=== PATIENT | female | born 1950 | race Caucasian/White ===

== ENCOUNTER 2017-11-21 10:00 | Emergency (ER) | payer BC ==
[~2017-11-21 10:00] MED LIST: SYNT25TA PO
[2017-11-21 10:08] VITALS: BP 146/62; PULSE 87; RESP 16; TEMP 98.4; O2SAT 95
[2017-11-21] MEDS ORDERED: LEVO125T4 PO (10:15)
[2017-11-21] MEDS ORDERED: LEVO112T2 PO (10:15)
[2017-11-21] MEDS ORDERED: AMOX875T PO (10:16)
[2017-11-21] MEDS ORDERED: MAGICADU2 SWISH-SPIT (10:18)
--- NOTE | 2017-11-21 10:21 | PD ---
HPI Chief Complaint: ENT Complaint Time Seen by Provider: 10:11 Travel History International Travel<30 days: No Contact w/Intl Traveler<30days: No Traveled to known affect area: No History of Present Illness HPI 67-year-old female presents with left ear pain and sore throat. Symptoms started 1 week ago. Pain is a pulsating pain in left ear, constant, and a sore type pain in her throat which is worse when swallowing. Symptoms have been worsening which prompted evaluation today. Denies cough, congestion, fevers or chills. Denies recent travel, recent swimming. She tried using over-the- counter eardrops which did not seem to help with her symptoms. No other complaints at this time. PFSH Past Medical History Arthritis: No Asthma: No Autoimmune Disease: No Heart Rhythm Problems: No Cancer: Yes (THYROID) Cardiovascular Problems: No High Cholesterol: No Congestive Heart Failure: No COPD: No Cerebrovascular Accident: No Diminished Hearing: No Gastrointestinal Disorders: No GERD: No Glaucoma: No Headaches: Yes Hepatitis: No Hiatal Hernia: No Hypertension: No Musculoskeletal: No Neurologic: No Psychiatric: No Respiratory: No Myocardial Infarction: No Seizures: No Sleep Apnea: No Thyroid Disease: Yes Ulcer: No Past Surgical History Abdominal Surgery: Yes (hysterectomy) Endocrine Surgery: Yes (THYROID REMOVED) Genitourinary Surgery: No Hysterectomy: Yes Other Surgery: No Social History Alcohol Use: No Tobacco Use: No Substance Use: No Allergies-Medications (Allergen,Severity, Reaction): Coded Allergies: No Known Allergies (Verified Adverse Reaction, Unknown, 11/21/17) Reported Meds & Prescriptions Reported Meds & Active Scripts Active Magic Mouthwash Adult Liq (Multi-Ingredient Mouthwash/Gargle) 120 Ml Susp 10 Ml SWISH-SPIT ACHS Each 5mL contains: Nystatin 200,000units, Diphenhydramine 4.25mg, Viscous Lidocaine 10mg, Argueta syrup 0.8 mL Amoxicillin 875 Mg Tab 875 Mg PO BID 10 Days Reported Levothyroxine (Levothyroxine Sodium) 125 Mcg Tab 125 Mcg PO TH,F,S,S Levothyroxine (Levothyroxine Sodium) 112 Mcg Tab 112 Mcg PO M,T,W Review of Systems General / Constitutional: No: Fever, Chills HENT: Positive: Headaches, Sore Throat, Earache, No: Congestion, Ear Discharge Respiratory: No: Cough Gastrointestinal: No: Nausea, Vomiting, Abdominal Pain Physical Exam Narrative GENERAL: Well-developed well-nourished female in no acute distress SKIN: Warm and dry. HEAD: Atraumatic. Normocephalic. EYES: Pupils equal and round. No scleral icterus. No injection or drainage. ENT: No nasal bleeding or discharge. Mucous membranes pink and moist. The oropharynx is mildly erythematous. Left tympanic membrane is bulging and erythematous without perforation. NECK: Trachea midline. No JVD. There is mild tender anterior cervical lymphadenopathy present. CARDIOVASCULAR: Regular rate and rhythm. No murmur appreciated. RESPIRATORY: No accessory muscle use. Clear to auscultation. Breath sounds equal bilaterally. GASTROINTESTINAL: Abdomen soft, non-tender, nondistended. Hepatic and splenic margins not palpable. Data Data Last Documented VS Vital Signs Date Time Temp Pulse Resp B/P (MAP) Pulse Ox O2 Delivery O2 Flow Rate FiO2 11/21/17 10:08 98.4 87 16 146/62 (90) 95 Orders Orders Ed Discharge Order (11/21/17 10:17) [facility] Medical Decision Making Medical Screen Exam Complete: Yes Emergency Medical Condition: Yes Medical Record Reviewed: Yes Differential Diagnosis Otitis media, otitis externa, perforated tympanic membrane, mastoiditis, referred dental pain, pharyngitis, tonsillitis Narrative Course The patient has left otitis media and pharyngitis. She is being discharged with amoxicillin and Magic mouthwash. Diagnosis Primary Impression: Left otitis media Additional Impression: Pharyngitis Additional Instructions: Medication as prescribed. Stay well hydrated well-nourished. Use over-the- counter Tylenol or Motrin for pain. Dosing instructions on the bottle. Follow- up with primary care physician as needed and return for any acutely new or worsening symptoms. Med/Other Pt SpecificInfo: Prescription(s) given Scripts Ntvshpob-Mzvqilqoydtewtg-Jrmkddglc Liq (Magic Mouthwash Adult Liq) 120 Ml Susp 10 ML SWISH-SPIT ACHS for Mouth sores, #120 ML 1 Refill Each 5mL contains: Nystatin 200,000units, Diphenhydramine 4.25mg, Viscous Lidocaine 10mg, Argueta syrup 0.8 mL Prov: Chang Davis MD 11/21/17 Amoxicillin (Amoxicillin) 875 Mg Tab 875 MG PO BID for Infection for 10 Days, #20 TAB 0 Refills Prov: Chang Davis MD 11/21/17 Disposition: 01 DISCHARGE HOME Condition: Stable Jose Eduardo Ojeda Nov 21, 2017 10:21
[2017-11-26] MEDS ORDERED: FIOR30CA12 PO (04:28)
== END 2017-11-21 10:42 | disposition home or self-care (01) ==
LOC: PHEFT 10:00
DX: H66.92 Otitis media, unspecified, left ear (principal); J02.9 Acute pharyngitis, unspecified; E07.9 Disorder of thyroid, unspecified
CPT/HCPCS: 99284

== ENCOUNTER 2017-11-25 23:53 | Emergency (ER) | payer BC ==
[2017-11-26] MEDS ORDERED: LIDOCAINE HCL 1% PF 30 ML VIAL XX (03:15)
[2017-11-26] MEDS: KETOROLAC TROMETHAMINE 60 MG/2 ML (IM) VIAL IM (03:37)
[2017-11-26] MEDS: LIDOCAINE HCL 1% PF 10 ML VIAL OTHER (03:39)
== END 2017-11-26 04:36 | disposition home or self-care (01) ==
LOC: PHED 23:53
DX: J02.9 Acute pharyngitis, unspecified (principal); E89.0 Postprocedural hypothyroidism; Z85.850 Personal history of malignant neoplasm of thyroid; Z90.710 Acquired absence of both cervix and uterus
CPT/HCPCS: 96374; 96375; 99284-25